=== PATIENT | female | born 1990 | race Caucasian/White ===

== ENCOUNTER 2018-11-02 12:16 | Emergency (ER) | payer BC ==
[~2018-11-02] VITALS: Ht 157.5 cm; Wt 61.2 kg
--- NOTE | 2018-11-02 12:23 | NUR ---
BIB SELF W C/O WORSENING SOB X 1 MONTH, CHEST PAIN X LAST NIGHT WORST W/ DEEP BREATHS, TO ER BED 7, HOOKED TO MONITOR, AWAITING MD SANTOS
--- NOTE | 2018-11-02 12:30 | NUR ---
DR NASH AT BEDSIDE. PER PATIENT, MIDSTERNAL PRESSURE LIKE CHEST PAIN, NON-RADIATING.
--- NOTE | 2018-11-02 12:53 | NUR ---
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
[2018-11-02 13:08] LABS: BASOPHILS # (AUTO) 0.1 /CMM (0.0-0.2); BASOPHILS % (AUTO) 0.5 % (0.0-2.0); EOSINOPHILS % (AUTO) 4.9 % (0.0-6.0); HEMATOCRIT 43 % (33-45); HEMOGLOBIN 14.6 g/dL (11.5-14.8); LYMPHOCYTES # (AUTO) 1.6 /CMM (0.8-4.8); LYMPHOCYTES % (AUTO) 10.4 % (20.0-44.0); MEAN CORPUSCULAR HGB CONC 34 g/dl (31.0-36.0); MEAN CORPUSCULAR VOLUME 90 fL (82-100); MONOCYTES # (AUTO) 0.7 /CMM (0.1-1.30); MONOCYTES % (AUTO) 4.4 % (2.0-12.0); NEUTROPHILS # (AUTO) 12.2 /CMM (1.8-8.9); NEUTROPHILS % (AUTO) 79.8 % (43.0-81.0); PLATELET COUNT (AUTO) 239 /CMM (150-450); RED BLOOD CELL COUNT(AUTO) 4.77 MIL/uL (4.0-5.2); WHITE BLOOD COUNT (AUTO) 15.3 K/uL (4.3-11.0)
[2018-11-02 13:14] LABS: CALCIUM, SERUM 8.8 mg/dL (8.5-10.1); CARBON DIOXIDE 27 mmol/L (21-32); CHLORIDE 102 mmol/L (98-107); CREATININE 0.7 mg/dL (0.6-1.3); GLUCOSE 96 mg/dL (74-106); POTASSIUM 3.7 mmol/L (3.5-5.1); SODIUM SERUM 138 mmol/L (136-145); UREA NITROGEN, BLOOD 8 mg/dL (7-18)
--- NOTE | 2018-11-02 13:39 | NUR ---
Patient discharged to home in stable condition. Written and verbal after care instructions given. Patient verbalizes understanding of instruction.
[2018-11-02 13:40] VITALS: BP 120/64
== END 2018-11-02 13:41 | disposition home or self-care (01) ==
LOC: ER 12:18
DX: R07.81 Pleurodynia (principal); M79.7 Fibromyalgia
CPT/HCPCS: 36415; 71045; 84484; 80048; 85025; 93005; 99284; A4606